=== PATIENT | male | born 1990 | race Caucasian/White ===

== ENCOUNTER 2020-10-08 17:03 | Emergency (ER) | payer SELFPAY ==
[2020-10-08 17:41] LABS: HEMOGLOBIN 14.7 gm/dl (14.0-17.5); RED BLOOD COUNT 4.76 M/UL (4.20-5.50)
[2020-10-08 18:07] LABS: BUN/CREATININE RATIO 20 (0-10)
== END 2020-10-08 22:10 | disposition home or self-care (01) ==
LOC: ER1 17:03
PROVIDERS: Physician Assistant
DX: R07.9 Chest pain, unspecified (principal)
CPT/HCPCS: 71045; 80053; 82550; 82553; 83690; 83735; 83874; 84484; 85025; 85379; 93005; 96374; 99285